=== PATIENT | female | born 1955 | race African-American/Black ===

== ENCOUNTER 2019-05-13 06:31 | Inpatient (IN) | payer MEDICAID, OTHER ==
[~2019-05-13] VITALS: Ht 170.2 cm; Wt 55.8 kg
[~2019-05-13 06:31] MED LIST: CLONIDINE; NORVASC
[2019-05-13] MEDS ORDERED: ONDANSETRON HCL 4MG/2ML INJ IV STA (07:03)
[2019-05-13] MEDS ORDERED: MORPHINE SULFATE 4 MG/ML CPJ (NOT FOR IM USE) IV STA (07:03)
[2019-05-13 09:30] LABS: BASOPHILS % 0.3 % (0.0-2.0); EOSINOPHILS % 0.1 % (0.0-5.0); HEMATOCRIT. 48.7 % (36.0-48.0); HEMOGLOBIN. 16.6 g/dL (12.0-16.0); LYMPHOCYTES % 11.8 % (20.0-50.0); MEAN CORPUSCULAR HEMOGLOBIN 30.9 pg (28.0-32.0); MEAN CORPUSCULAR VOLUME 90.5 fL (81.0-99.0); MEAN PLATELET VOLUME 8.8 fl (7.4-10.4); MONOCYTES % 5.5 % (2.0-8.0); NEUTROPHILS % 82.3 % (40.0-76.0); PLATELET 392 x1000/uL (130-400); RED BLOOD CELL COUNT 5.38 mill/uL (4.2-5.4); RED CELL DISTRIBUTION WIDTH 13.9 % (11.6-14.6)
[2019-05-13] MEDS ORDERED: MORPHINE SULFATE 4 MG/ML CPJ (NOT FOR IM USE) IV ONE (09:30)
[2019-05-13] MEDS ORDERED: ONDANSETRON HCL 4MG/2ML INJ IV ONE (09:30)
[2019-05-13 09:34] LABS: CHLORIDE 102 mEq/L (98-107); PROTHROMBIN TIME 9.9 sec (9.6-11.0)
[2019-05-13] MEDS ORDERED: POTASSIUM CHLORIDE 20MEQ TABLET SR PO ONE (11:45)
[2019-05-13] MEDS ORDERED: DIPHENHYDRAMINE 50MG/ML VIAL IV PRN (15:00)
[2019-05-13] MEDS ORDERED: ACETAMINOPHEN 325MG TABLET PO PRN (15:00)
[2019-05-13] MEDS ORDERED: CLONIDINE 0.1MG TABLET PO PRN (15:00)
[2019-05-13] MEDS ORDERED: MAGNESIUM/ALUMINUM HYDROXIDE/SIMETHICONE 30ML UDC PO PRN (15:00)
[2019-05-13] MEDS ORDERED: LORAZEPAM 0.5MG TABLET PO PRN (15:00)
[2019-05-13 15:14] VITALS: BP 168/69
[2019-05-13] MEDS ORDERED: POTASSIUM CHLORIDE INJ 40 MEQ in DEXT 5% WATER 250 ML IV NR (15:30)
[2019-05-13] MEDS: FAMOTIDINE 20MG/2ML VIAL IV SCH (16:38)
[2019-05-13] MEDS: HYDROMORPHONE HCL/PF 2MG/ML CPJ IV PRN ×3 (16:39→23:57)
[2019-05-13] MEDS ORDERED: LEVOFLOXACIN 500MG PREMIX 100 ML IV SCH (17:00)
[2019-05-13] MEDS: ONDANSETRON HCL 4MG/2ML INJ IV PRN (17:04)
[2019-05-13 20:00] VITALS: BP 155/69
[2019-05-13] MEDS: DEXT 5%/0.45% NACL KCL 40MEQ/L 1,000 ML IV SCH (20:31)
[2019-05-14] VITALS: BP 148/75
[2019-05-14] MEDS: DEXT 5%/0.45% NACL KCL 40MEQ/L 1,000 ML IV SCH ×4 (00:30→16:30)
[2019-05-14 04:00] VITALS: BP 137/73
[2019-05-14 04:23] LABS: CLARITY URINE CLEAR (CLEAR); COLOR URINE YELLOW (YELLOW); KETONES URINE TRACE (NEGATIVE); LEUKOCYTE ESTERASE URINE 1+ (NEGATIVE); NITRITE URINE NEGATIVE (NEGATIVE); OCCULT BLOOD URINE TRACE (NEGATIVE); PH URINE 5.5 (4.5-8.0); PROTEIN URINE 1+ (NEGATIVE); SPECIFIC GRAVITY URINE 1.017 (1.005-1.030)
[2019-05-14] MEDS: ONDANSETRON HCL 4MG/2ML INJ IV PRN (05:28)
[2019-05-14] MEDS: HYDROMORPHONE HCL/PF 2MG/ML CPJ IV PRN ×3 (05:29→20:30)
[2019-05-14 07:13] LABS: HEMATOCRIT. 42.1 % (36.0-48.0); HEMOGLOBIN. 14.2 g/dL (12.0-16.0); MEAN CORPUSCULAR HEMOGLOBIN 31.1 pg (28.0-32.0); MEAN CORPUSCULAR VOLUME 92.4 fL (81.0-99.0); MEAN PLATELET VOLUME 8.4 fl (7.4-10.4); PLATELET 323 x1000/uL (130-400); RED BLOOD CELL COUNT 4.56 mill/uL (4.2-5.4)
[2019-05-14 07:28] LABS: CHLORIDE 107 mEq/L (98-107)
[2019-05-14 07:35] LABS: PHOSPHORUS 2.5 mg/dL (2.5-4.9)
[2019-05-14] MEDS: FAMOTIDINE 20MG/2ML VIAL IV SCH (09:00)
[2019-05-14 12:00] VITALS: BP 158/89
[2019-05-14] MEDS ORDERED: MAGNESIUM 2 G PREMIX 50 ML IV SCH (14:00)
[2019-05-14 16:00] VITALS: BP 142/81
[2019-05-14 17:14] LABS: PLATELET ESTIMATE NORMAL
[2019-05-14] MEDS: LEVOFLOXACIN 250MG PREMIX 50 ML IV SCH (17:49)
[2019-05-14] MEDS: DILTIAZEM HCL 30MG TABLET PO SCH ×2 (17:49→23:17)
[2019-05-14 19:43] LABS: *AMPHETAMINES SCREEN URINE PRESUMTIVE POSITIVE (NEGATIVE); *BARBITURATES SCREEN URINE NEGATIVE (NEGATIVE); *BENZODIAZEPINES SCREEN URINE NEGATIVE (NEGATIVE); *COCAINE SCREEN URINE NEGATIVE (NEGATIVE); METHADONE URINE SCREEN NEGATIVE (NEGATIVE); OPIATES URINE SCREEN PRESUMTIVE POSITIVE (NEGATIVE)
[2019-05-14 19:44] LABS: CANNABINOID URINE SCREEN NEGATIVE (NEGATIVE); PHENCYCLIDINE URINE SCREEN NEGATIVE (NEGATIVE)
[2019-05-15] MEDS: DEXT 5%/0.45% NACL KCL 40MEQ/L 1,000 ML IV SCH ×4 (01:44→23:14)
[2019-05-15] MEDS: HYDROMORPHONE HCL/PF 2MG/ML CPJ IV PRN ×3 (04:01→16:23)
[2019-05-15] MEDS: DILTIAZEM HCL 30MG TABLET PO SCH ×4 (05:32→23:55)
[2019-05-15 09:03] LABS: BASOPHILS % 0.4 % (0.0-2.0); CHLORIDE 108 mEq/L (98-107); EOSINOPHILS % 0.1 % (0.0-5.0); HEMATOCRIT. 43.4 % (36.0-48.0); HEMOGLOBIN. 14.8 g/dL (12.0-16.0); LYMPHOCYTES % 12.5 % (20.0-50.0); MEAN CORPUSCULAR HEMOGLOBIN 31.2 pg (28.0-32.0); MEAN CORPUSCULAR VOLUME 91.5 fL (81.0-99.0); MEAN PLATELET VOLUME 8.6 fl (7.4-10.4); MONOCYTES % 8.6 % (2.0-8.0); NEUTROPHILS % 78.4 % (40.0-76.0); PLATELET 338 x1000/uL (130-400); RED BLOOD CELL COUNT 4.74 mill/uL (4.2-5.4); RED CELL DISTRIBUTION WIDTH 14.1 % (11.6-14.6)
[2019-05-15 09:10] LABS: PHOSPHORUS 1.5 mg/dL (2.5-4.9)
[2019-05-15 12:00] VITALS: BP 148/79
[2019-05-15 16:00] VITALS: BP 146/94
[2019-05-15] MEDS: FAMOTIDINE 20MG/2ML VIAL IV SCH (16:22)
[2019-05-15] MEDS: LEVOFLOXACIN 250MG PREMIX 50 ML IV SCH (17:09)
[2019-05-15 20:00] VITALS: BP 160/90
[2019-05-15] MEDS ORDERED: POTASSIUM PHOS,M-BASIC-D-BASIC 20 MMOL in DEXT 5% WATER 243.3333 ML IV NR (20:00)
[2019-05-15] MEDS: ONDANSETRON HCL 4MG/2ML INJ IV PRN (23:54)
[2019-05-16] VITALS: BP 148/65
[2019-05-16] MEDS: HYDROMORPHONE HCL/PF 2MG/ML CPJ IV PRN ×3 (00:13→08:56)
[2019-05-16 04:00] VITALS: BP 131/80
[2019-05-16] MEDS: ONDANSETRON HCL 4MG/2ML INJ IV PRN ×2 (04:41→08:49)
[2019-05-16] MEDS: DILTIAZEM HCL 30MG TABLET PO SCH ×3 (04:50→18:09)
[2019-05-16 08:00] VITALS: BP 152/81
[2019-05-16] MEDS: FAMOTIDINE 20MG/2ML VIAL IV SCH (08:49)
[2019-05-16 12:00] VITALS: BP 158/88
[2019-05-16 14:04] LABS: CHLORIDE 106 mEq/L (98-107)
[2019-05-16 14:12] LABS: PHOSPHORUS 2.4 mg/dL (2.5-4.9)
[2019-05-16 16:00] VITALS: BP 147/74
[2019-05-16] MEDS ORDERED: KETOROLAC 30MG/ML VIAL IV PRN (17:15)
[2019-05-16 20:00] VITALS: BP 147/75
[2019-05-16] MEDS: BENAZEPRIL 10MG TABLET PO SCH (20:45)
[2019-05-17] VITALS: BP 142/82
[2019-05-17] MEDS: DILTIAZEM HCL 30MG TABLET PO SCH ×2 (00:10→05:56)
[2019-05-17 04:00] VITALS: BP 138/70
[2019-05-17] MEDS: ONDANSETRON HCL 4MG/2ML INJ IV PRN ×2 (05:55→09:55)
[2019-05-17 07:50] LABS: BASOPHILS % 0.4 % (0.0-2.0); EOSINOPHILS % 0.4 % (0.0-5.0); HEMATOCRIT. 43.4 % (36.0-48.0); HEMOGLOBIN. 14.7 g/dL (12.0-16.0); LYMPHOCYTES % 19.7 % (20.0-50.0); MEAN CORPUSCULAR HEMOGLOBIN 30.7 pg (28.0-32.0); MEAN CORPUSCULAR VOLUME 90.7 fL (81.0-99.0); MEAN PLATELET VOLUME 8.5 fl (7.4-10.4); MONOCYTES % 12.8 % (2.0-8.0); NEUTROPHILS % 66.7 % (40.0-76.0); PLATELET 317 x1000/uL (130-400); RED BLOOD CELL COUNT 4.78 mill/uL (4.2-5.4); RED CELL DISTRIBUTION WIDTH 13.5 % (11.6-14.6)
[2019-05-17 08:00] VITALS: BP 145/86
[2019-05-17 08:14] LABS: CHLORIDE 103 mEq/L (98-107)
[2019-05-17] MEDS: BENAZEPRIL 10MG TABLET PO SCH (09:55)
[2019-05-17] MEDS: FAMOTIDINE 20MG/2ML VIAL IV SCH (09:55)
[2019-05-17 12:00] VITALS: BP 124/78
[2019-05-17 13:44] VITALS: BP 124/78
== END 2019-05-17 14:15 | disposition home or self-care (01) ==
LOC: ER 06:31 → 8WST 10:20 → ENRESERV 10:46
PROVIDERS: ADMIT Internal Medicine; ATTEND Internal Medicine
PROC: 02HV33Z Insertion of Infusion Device into Superior Vena Cava, Percutaneous Approach (ICD-10-PCS; principal; 2019-05-15)
PROC: B548ZZA Ultrasonography of Superior Vena Cava, Guidance (ICD-10-PCS; 2019-05-15)
PROC: B5181ZA Fluoroscopy of Superior Vena Cava using Low Osmolar Contrast, Guidance (ICD-10-PCS; 2019-05-15)
DX: K80.00 Calculus of gallbladder with acute cholecystitis without obstruction (principal); G35 Multiple sclerosis; R65.10 Systemic inflammatory response syndrome (SIRS) of non-infectious origin without acute organ dysfunction; K56.7 Ileus, unspecified; B19.20 Unspecified viral hepatitis C without hepatic coma; N39.0 Urinary tract infection, site not specified; K52.9 Noninfective gastroenteritis and colitis, unspecified; J44.9 Chronic obstructive pulmonary disease, unspecified; F17.210 Nicotine dependence, cigarettes, uncomplicated; I12.9 Hypertensive chronic kidney disease with stage 1 through stage 4 chronic kidney disease, or unspecified chronic kidney disease; G89.29 Other chronic pain; Z90.11 Acquired absence of right breast and nipple; Z88.6 Allergy status to analgesic agent; Z88.0 Allergy status to penicillin; Z85.3 Personal history of malignant neoplasm of breast; Z79.899 Other long term (current) drug therapy
CPT/HCPCS: 36415; 36573; 71045; 74176; 76705; 78227; 80048; 80305; 81003; 83735; 84100; 84132; 93005; 93306; 96374; 96375; 99285; A9537; C1725; C1893; J1170; J1885; J1956; J2270; J2405; J3475; J3480; J3490; J7060

== ENCOUNTER 2019-05-17 18:16 | Emergency (ER) | payer MEDICAID ==
[~2019-05-17] VITALS: Ht 165.1 cm; Wt 57.0 kg
[2019-05-17 19:37] LABS: HEMOGLOBIN. 16.5 g/dL (12.0-16.0); MEAN CORPUSCULAR HEMOGLOBIN 30.8 pg (28.0-32.0); MEAN CORPUSCULAR VOLUME 91.4 fL (81.0-99.0); MEAN PLATELET VOLUME 7.8 fl (7.4-10.4); PLATELET 361 x1000/uL (130-400); RED BLOOD CELL COUNT 5.36 mill/uL (4.2-5.4); RED CELL DISTRIBUTION WIDTH 13.7 % (11.6-14.6)
[2019-05-17 19:38] LABS: CHLORIDE 104 mEq/L (98-107)
[2019-05-17 19:42] LABS: ETHANOL BLOOD < 10 mg/dL
[2019-05-17 20:27] LABS: PLATELET ESTIMATE NORMAL
[2019-05-17 23:23] LABS: CLARITY URINE CLEAR (CLEAR); COLOR URINE YELLOW (YELLOW); KETONES URINE NEGATIVE (NEGATIVE); LEUKOCYTE ESTERASE URINE TRACE (NEGATIVE); NITRITE URINE NEGATIVE (NEGATIVE); OCCULT BLOOD URINE NEGATIVE (NEGATIVE); PROTEIN URINE TRACE (NEGATIVE); SPECIFIC GRAVITY URINE 1.013 (1.005-1.030); UROBILINOGEN URINE 0.2 E.U./dL (0.2-1.0)
[2019-05-17 23:44] LABS: *AMPHETAMINES SCREEN URINE NEGATIVE (NEGATIVE); *BARBITURATES SCREEN URINE NEGATIVE (NEGATIVE); *BENZODIAZEPINES SCREEN URINE NEGATIVE (NEGATIVE); *COCAINE SCREEN URINE NEGATIVE (NEGATIVE); METHADONE URINE SCREEN NEGATIVE (NEGATIVE)
[2019-05-17 23:45] LABS: CANNABINOID URINE SCREEN NEGATIVE (NEGATIVE); OPIATES URINE SCREEN PRESUMTIVE POSITIVE (NEGATIVE); PHENCYCLIDINE URINE SCREEN NEGATIVE (NEGATIVE)
[2019-05-18] MEDS ORDERED: NITROFURANTOIN MACROCRYSTAL 25MG CAPSULE PO SCH (11:45)
[2019-05-18] MEDS ORDERED: NITROFURANTOIN MACROCRYSTAL 50MG CAPSULE PO SCH (12:00)
[2019-05-18 12:30] VITALS: BP 147/72
== END 2019-05-18 12:30 | disposition home or self-care (01) ==
LOC: ER 18:16
DX: G89.29 Other chronic pain (principal); R10.84 Generalized abdominal pain; R45.851 Suicidal ideations; F32.9 Major depressive disorder, single episode, unspecified; I10 Essential (primary) hypertension; G35 Multiple sclerosis; H54.7 Unspecified visual loss; Z59.0 Homelessness; Z85.3 Personal history of malignant neoplasm of breast; Z88.0 Allergy status to penicillin
CPT/HCPCS: 36415; 80305; 80307; 80320; 80329; 81003; 99283; G0480

== ENCOUNTER 2019-05-23 11:22 | Emergency (ER) | payer MEDICAID ==
[~2019-05-23] VITALS: Ht 162.6 cm; Wt 57.0 kg
[2019-05-23 13:02] LABS: CLARITY URINE CLOUDY (CLEAR); COLOR URINE YELLOW (YELLOW); KETONES URINE TRACE (NEGATIVE); LEUKOCYTE ESTERASE URINE TRACE (NEGATIVE); NITRITE URINE NEGATIVE (NEGATIVE); OCCULT BLOOD URINE NEGATIVE (NEGATIVE); PH URINE 5.5 (4.5-8.0); PROTEIN URINE 1+ (NEGATIVE); SPECIFIC GRAVITY URINE 1.019 (1.005-1.030)
[2019-05-23 13:25] LABS: HEMATOCRIT. 42.4 % (36.0-48.0); HEMOGLOBIN. 14.1 g/dL (12.0-16.0); MEAN CORPUSCULAR HEMOGLOBIN 30.2 pg (28.0-32.0); MEAN CORPUSCULAR VOLUME 91.1 fL (81.0-99.0); MEAN PLATELET VOLUME 7.4 fl (7.4-10.4); PLATELET 428 x1000/uL (130-400); RED BLOOD CELL COUNT 4.65 mill/uL (4.2-5.4); RED CELL DISTRIBUTION WIDTH 13.9 % (11.6-14.6)
[2019-05-23 13:27] LABS: CHLORIDE 103 mEq/L (98-107)
[2019-05-23 13:31] LABS: ETHANOL BLOOD < 10 mg/dL
[2019-05-23 13:35] LABS: *BARBITURATES SCREEN URINE NEGATIVE (NEGATIVE); *BENZODIAZEPINES SCREEN URINE NEGATIVE (NEGATIVE); *COCAINE SCREEN URINE PRESUMTIVE POSITIVE (NEGATIVE)
[2019-05-23 13:38] LABS: METHADONE URINE SCREEN NEGATIVE (NEGATIVE)
[2019-05-23 13:40] LABS: *AMPHETAMINES SCREEN URINE NEGATIVE (NEGATIVE)
[2019-05-23 13:41] LABS: CANNABINOID URINE SCREEN NEGATIVE (NEGATIVE)
[2019-05-23 13:42] LABS: OPIATES URINE SCREEN NEGATIVE (NEGATIVE); PHENCYCLIDINE URINE SCREEN NEGATIVE (NEGATIVE)
[2019-05-23 13:43] LABS: PLATELET ESTIMATE SLIGHTLY INCREASED
[2019-05-23] MEDS ORDERED: ONDANSETRON HCL 4MG TABLET PO ONE (23:30)
[2019-05-23] MEDS ORDERED: ACETAMINOPHEN 325MG TABLET PO ONE (23:30)
[2019-05-24] MEDS ORDERED: KETOROLAC 60MG/2ML VIAL IM ONE (00:45)
[2019-05-24] MEDS ORDERED: ONDANSETRON HCL 4MG TABLET PO ONE (01:00)
[2019-05-24] MEDS ORDERED: KETOROLAC 30MG/ML VIAL IV ONE (06:00)
[2019-05-24] MEDS ORDERED: ACETAMINOPHEN 650MG/20.3ML UDC PO ONE (10:45)
[2019-05-24 12:51] VITALS: BP 138/75
== END 2019-05-24 13:15 | disposition home or self-care (01) ==
LOC: ER 11:22
DX: R45.851 Suicidal ideations (principal); I10 Essential (primary) hypertension; Z87.440 Personal history of urinary (tract) infections; Z87.19 Personal history of other diseases of the digestive system; Z90.10 Acquired absence of unspecified breast and nipple; Z88.6 Allergy status to analgesic agent; Z59.0 Homelessness
CPT/HCPCS: 36415; 74176; 80053; 80305; 80307; 80320; 80329; 81003; 85025; 96372; 96374; 99284; J1885; Q0162; G0480